=== PATIENT | male | born 1975 | race African-American/Black ===

== ENCOUNTER 2017-11-08 13:49 | Emergency (ER) | payer MEDICAID, OTHER ==
[~2017-11-08] VITALS: Ht 172.7 cm; Wt 71.0 kg
[2017-11-08 14:05] VITALS: BP 145/105
== END 2017-11-08 18:25 | disposition left against medical advice (07) ==
LOC: ER 14:58
DX: Z53.21 Procedure and treatment not carried out due to patient leaving prior to being seen by health care provider (principal)